=== PATIENT | female | born 1935 | race Caucasian/White ===

== ENCOUNTER 2019-04-27 16:02 | Inpatient (IN) | payer MEDICARE, OTHER ==
[~2019-04-27] VITALS: Ht 170.2 cm; Wt 60.0 kg
[2019-04-27] MEDS ORDERED: fentaNYL/PF 50MCG/1 ML 2ML syringe IV ONE ×2 (16:30→19:55)
[2019-04-27 16:51] LABS: BASOPHILS % (AUTO) 0.6 % (0-1); EOSINOPHILS % (AUTO) 0.3 % (0-6); HEMATOCRIT 37.4 % (35.0-45.0); HEMOGLOBIN 12.7 g/dl (12.0-16.0); LYMPHOCYTES # (AUTO) 1.5 X10'3 (1.1-4.8); LYMPHOCYTES % (AUTO) 19.5 % (21-51); MEAN CORPUSCULAR HEMOGLOBIN 32.8 PG (27.0-31.0); MEAN CORPUSCULAR VOLUME 96.2 FL (78-98); MEAN PLATELET VOLUME 7.9 FL (7.4-10.4); MONOCYTES # (AUTO) 0.5 X10'3 (0-0.9); MONOCYTES % (AUTO) 7.1 % (2-12); NEUTROPHILS # (AUTO) 5.5 X10'3 (1.8-7.7); NEUTROPHILS % (AUTO) 72.5 % (42-75); PLATELET COUNT 279 X10'3 (140-440); RED BLOOD COUNT 3.88 X10'6 (4.20-5.60); RED CELL DISTRIBUTION WIDTH 12.3 % (11.5-14.5); WHITE BLOOD COUNT 7.6 X10'3 (4.5-11.0)
[2019-04-27 17:00] LABS: ALANINE AMINOTRANSFERASE 28 U/L (12-78); ALBUMIN 4.2 G/DL (3.4-5.0); ALBUMIN/GLOBULIN RATIO 1.5 (1.1-1.5); ALKALINE PHOSPHATASE 78 IU/L (46-116); ANION GAP 10 (8-16); ASPARTATE AMINO TRANSFERASE 23 U/L (10-37); BILIRUBIN,TOTAL 0.4 MG/DL (0.1-1.0); BLOOD UREA NITROGEN 24 MG/DL (7-18); BUN/CREATININE RATIO 27.9 (6.6-38.0); CALCIUM 9.5 MG/DL (8.5-10.1); CHLORIDE 106 MMOL/L (99-107); CREATININE 0.86 MG/DL (0.40-0.90); GLUCOSE 98 MG/DL (70-104); POTASSIUM 3.9 MMOL/L (3.5-5.1); SODIUM 142 MMOL/L (135-145); TOTAL CARBON DIOXIDE 25.9 MMOL/L (24-32); eGFR 63 ML/MIN
[2019-04-27] MEDS ORDERED: ACET-75 PO (17:07)
[2019-04-27] MEDS ORDERED: LORazepam 2 mg/ml vial ONE (17:07)
[2019-04-27] MEDS ORDERED: HYDROcodone/acetaminophen 5mg/325mg tablet PO PRN (17:30)
[2019-04-27] MEDS ORDERED: HYDROcodone/acetaminophen 10/325mg tab PO PRN (17:30)
[2019-04-27] MEDS ORDERED: potassium CL 10mEq/100ml bag 100 ML IV PRN ×2 (17:30)
[2019-04-27] MEDS ORDERED: magnesium 2GM in 50ml NS 50 ML IV PRN (17:30)
[2019-04-27] MEDS ORDERED: mag hydrox/Alum hydrox/simeth 30ml oral suspension PO PRN (17:30)
[2019-04-27] MEDS ORDERED: magnesium 4gm in 100ml NS 100 ML IV PRN (17:30)
[2019-04-27] MEDS ORDERED: morphine 2 MG/ML inj. syringe IV PRN (17:30)
[2019-04-27] MEDS ORDERED: potassium Cl 20 mEq SR tablet PO PRN ×2 (17:30)
[2019-04-27] MEDS ORDERED: acetaminophen 325mg tablet PO PRN (17:30)
[2019-04-27] MEDS ORDERED: oxyCODONE IR 5mg (immed. release) tablet PO PRN (18:00)
[2019-04-27] MEDS ORDERED: LORazepam 2 mg/ml vial IV PRN (18:20)
[2019-04-27] MEDS ORDERED: MULT-933 PO (18:23)
[2019-04-27] MEDS ORDERED: MELO-102 PO (18:23)
[2019-04-27] MEDS ORDERED: ATOR10TA70 PO (18:23)
[2019-04-27] MEDS ORDERED: CHOL100046 PO (18:25)
[2019-04-27] MEDS ORDERED: DIPH25CA83 PO (18:25)
[2019-04-27] MEDS ORDERED: ASCO500C15 PO (18:25)
[2019-04-27] MEDS ORDERED: CYAN-51 PO (18:25)
[2019-04-27] MEDS: morphine 2 MG/ML inj. syringe IV PRN ×2 (18:59→23:59)
[2019-04-27] MEDS: ondansetron/PF 4mg/2ml inj IV PRN (19:03)
[2019-04-27 19:09] LABS: CLARITY,URINE CLEAR (Clear); COLOR,URINE YELLOW (Yellow); GLUCOSE, URINE NEGATIVE (Neg); KETONES,URINE 15 mg/dl (Neg); LEUKOCYTE ESTERASE ,URINE NEGATIVE (Neg); NITRITES, URINE POSITIVE (Neg); OCCULT BLOOD,URINE SMALL (Neg); PROTEIN,URINE NEGATIVE (Neg); UA COLLECTION TYPE FOLEY CATH; UROBILINOGEN,URINE 0.2 E.U/dL (0.2-1.0)
[2019-04-27 19:16] LABS: BACTERIA,URINE 3+ /HPF (Neg); MUCUS STRANDS NONE SEEN /LPF (Neg); RBC,URINE 0-2 /HPF (0-2); SQUAMOUS EPITHELIAL CELL,UR NONE SEEN /LPF (FEW)
--- NOTE | 2019-04-27 20:36 | NUR ---
traction placed to right leg, Pt tolerated well. CMS intact.
--- NOTE | 2019-04-27 22:08 | NUR ---
RECEIVED REPORT from Joanne Iglesias RN in the ER. had the opportunity to ask questions per report VS are stable R femur Fx, minimal Hx and pain well managed, RN will give dose of morphine before transferring pt up to unit.
[2019-04-27] MEDS: oxyCODONE IR 5mg (immed. release) tablet PO PRN (22:10)
--- NOTE | 2019-04-27 22:15 | NUR ---
Pt arived to unit with all belongings and with multiple family members, VS stable, call light in reach, oriented pt to room, ensured that traction was set up as needed, will continue to monitor.
[2019-04-27 22:20] VITALS: BP 111/45
[2019-04-28] VITALS (17 sets, daily range): BP systolic 92–133; BP diastolic 32–71
[2019-04-28] MEDS: oxyCODONE IR 5mg (immed. release) tablet PO PRN ×2 (02:53→15:38)
--- NOTE | 2019-04-28 06:30 | NUR ---
Problems reprioritized. Patient report given, questions answered & plan of care reviewed with Germaine Cohen RN.
[2019-04-28 07:00] LABS: BASOPHILS % (AUTO) 0.7 % (0-1); EOSINOPHILS % (AUTO) 0.2 % (0-6); HEMATOCRIT 31.5 % (35.0-45.0); HEMOGLOBIN 10.9 g/dl (12.0-16.0); LYMPHOCYTES # (AUTO) 1.2 X10'3 (1.1-4.8); LYMPHOCYTES % (AUTO) 16.6 % (21-51); MEAN CORPUSCULAR HEMOGLOBIN 32.9 PG (27.0-31.0); MEAN CORPUSCULAR HGB CONC 34.6 g/dL (33.0-36.5); MEAN CORPUSCULAR VOLUME 95.2 FL (78-98); MEAN PLATELET VOLUME 8.1 FL (7.4-10.4); MONOCYTES # (AUTO) 0.6 X10'3 (0-0.9); MONOCYTES % (AUTO) 8.3 % (2-12); NEUTROPHILS # (AUTO) 5.3 X10'3 (1.8-7.7); NEUTROPHILS % (AUTO) 74.2 % (42-75); PLATELET COUNT 222 X10'3 (140-440); RED BLOOD COUNT 3.31 X10'6 (4.20-5.60); RED CELL DISTRIBUTION WIDTH 12.3 % (11.5-14.5); WHITE BLOOD COUNT 7.1 X10'3 (4.5-11.0)
[2019-04-28 07:17] LABS: ALANINE AMINOTRANSFERASE 24 U/L (12-78); ALBUMIN 3.4 G/DL (3.4-5.0); ALBUMIN/GLOBULIN RATIO 1.4 (1.1-1.5); ALKALINE PHOSPHATASE 62 IU/L (46-116); ANION GAP 7 (8-16); ASPARTATE AMINO TRANSFERASE 18 U/L (10-37); BILIRUBIN,TOTAL 0.7 MG/DL (0.1-1.0); BLOOD UREA NITROGEN 15 MG/DL (7-18); BUN/CREATININE RATIO 21.4 (6.6-38.0); CALCIUM 8.2 MG/DL (8.5-10.1); CHLORIDE 103 MMOL/L (99-107); GLUCOSE 106 MG/DL (70-104); MAGNESIUM 1.7 MG/DL (1.5-2.4); POTASSIUM 4.1 MMOL/L (3.5-5.1); SODIUM 137 MMOL/L (135-145); TOTAL CARBON DIOXIDE 27.1 MMOL/L (24-32); TOTAL PROTEIN 5.8 G/DL (6.4-8.2); eGFR 80 ML/MIN
[2019-04-28] MEDS ORDERED: pneumococcal 23-VAL P-sac vacc 25 mcg/0.5ml vial IMVAC ONE (08:00)
[2019-04-28] MEDS: cyanocobalamin 500mcg tablet PO SCH (08:00)
[2019-04-28] MEDS: vitamin D (cholecalciferol) 1,000 unit tablet PO SCH (08:00)
[2019-04-28] MEDS: ascorbic acid 500mg tablet PO SCH (08:00)
[2019-04-28] MEDS: heparin, porcine 5000 units/ml vial SQ SCH ×3 (08:00→16:37)
[2019-04-28] MEDS: atorvastatin 10mg tablet PO SCH (08:00)
[2019-04-28] MEDS: K and/or MAG REPLACEMENT MC SCH (08:00)
[2019-04-28] MEDS: multivitamins, therapeutics tablet PO SCH (08:00)
[2019-04-28] MEDS ORDERED: ringers solution, lacted 1,000 ML IV SCH (08:38)
[2019-04-28] MEDS ORDERED: meperidine/PF 25mg/ml syringe IV PRN ×3 (08:40)
[2019-04-28] MEDS ORDERED: morphine 4 MG/ML inj SYRINge IV PRN ×2 (08:40)
[2019-04-28] MEDS ORDERED: ondansetron/PF 4mg/2ml inj IV PRN (08:40)
[2019-04-28] MEDS ORDERED: proCHLORperazine 10 MG/2 ml inj IV PRN (08:40)
[2019-04-28] MEDS ORDERED: ceFAZolin 1GM/D5W- ADD-VANTAGE 50 ML IV ONE (09:40)
[2019-04-28] MEDS ORDERED: midazolam 2 mg/2 ml injection ONE (09:55)
[2019-04-28] MEDS ORDERED: fentaNYL/PF 50MCG/1 ML 2ML syringe ONE (09:55)
[2019-04-28] MEDS ORDERED: ceFAZolin 1000mg inj ONE ×2 (10:20)
--- NOTE | 2019-04-28 10:55 | NUR ---
Received from OR via ORTHO BED WITH [facility] , accompanied by Anesthesiologist HUSAM and report given by Anesthesiolgist. PATIENT WITH 20G PIV IN LEFT UE RUNNING LR AT 100. RIGHT HIP DRESSING IS OOZY BUT CONTAINED WITHIN DRESSING. + DORSALIS PEDIS PRESENT. VSS. SCDS ON. ALERT AND ORIENTED. WILL CONTINUE TO ASSESS. Addendum: 04/28/19 at 1112 by Meek Chaney RN, RN Amended: Links added.
[2019-04-28] MEDS: ondansetron/PF 4mg/2ml inj IV PRN (11:13)
--- NOTE | 2019-04-28 11:55 | NUR ---
ALL CRITERIA FOR TRANSFER TO THE FLOOR HAS BEEN ACHIEVED. VSS. BED LOW, CALL LIGHT AND VS. SET IN PLACE. RN PRESENT TO ACCEPT CARE. PATIENT RESTING COMFORTABLY IN BED. BELONGINGS SENT WITH PATIENT. DRESSINGS CDI. CINDY WHEELER AWARE PATIENT HAS ARRIVED AND FAMILY ACCOMPANIED SHORTLY AFTER. Addendum: 04/28/19 at 1159 by Meek Anne - CINDY WHITE Amended: Links added.
--- NOTE | 2019-04-28 15:04 | NUR ---
Malnutrition consult: Pt admit s/p fall w/ R hip fx; fell during PT recovering from prior pelvis fx in September per MD note. Pt has normal strength, R hip +1 edema, well-developed and well-nourished per MD note. First patient admit and current wt pt stated. Advanced to regular diet from NPO following OR today. Pt will need high protein ed once stable post-op. At this time pt lacks minimum two malnutrition criteria. Will continue to monitor for additional criteria this admit. Addendum: 04/28/19 at [address] Amended: Links added.
--- NOTE | 2019-04-28 15:49 | NUR ---
PAGER ID: [phone] MESSAGE: Germaine [phone] [place] [address]- back from surgery, on ancef for prophylaxis, but her UA positive for nitrates. Does she need additional abx? Did you want her on any fluids?
[2019-04-28] MEDS: morphine 2 MG/ML inj. syringe IV PRN (16:29)
[2019-04-28] MEDS: ceFAZolin 1GM/D5W- ADD-VANTAGE 50 ML IV SCH (16:36)
[2019-04-29] MEDS: ceFAZolin 1GM/D5W- ADD-VANTAGE 50 ML IV SCH (00:15)
[2019-04-29] MEDS: heparin, porcine 5000 units/ml vial SQ SCH ×2 (00:20→08:00)
[2019-04-29 06:00] VITALS: BP 105/54
[2019-04-29 06:07] LABS: BASOPHILS % (AUTO) 0.7 % (0-1); EOSINOPHILS # (AUTO) 0.1 X10'3 (0-0.9); EOSINOPHILS % (AUTO) 0.9 % (0-6); HEMOGLOBIN 10.6 g/dl (12.0-16.0); LYMPHOCYTES # (AUTO) 1.2 X10'3 (1.1-4.8); MEAN CORPUSCULAR HEMOGLOBIN 33.6 PG (27.0-31.0); MEAN CORPUSCULAR HGB CONC 35.5 g/dL (33.0-36.5); MEAN CORPUSCULAR VOLUME 94.6 FL (78-98); MEAN PLATELET VOLUME 8.4 FL (7.4-10.4); MONOCYTES # (AUTO) 0.7 X10'3 (0-0.9); MONOCYTES % (AUTO) 11.6 % (2-12); NEUTROPHILS # (AUTO) 4.1 X10'3 (1.8-7.7); NEUTROPHILS % (AUTO) 67.8 % (42-75); PLATELET COUNT 195 X10'3 (140-440); RED BLOOD COUNT 3.17 X10'6 (4.20-5.60); RED CELL DISTRIBUTION WIDTH 12.3 % (11.5-14.5); WHITE BLOOD COUNT 6.1 X10'3 (4.5-11.0)
[2019-04-29 06:34] LABS: ALANINE AMINOTRANSFERASE 22 U/L (12-78); ALBUMIN 2.8 G/DL (3.4-5.0); ALBUMIN/GLOBULIN RATIO 1.1 (1.1-1.5); ALKALINE PHOSPHATASE 53 IU/L (46-116); ANION GAP 5 (8-16); ASPARTATE AMINO TRANSFERASE 16 U/L (10-37); BILIRUBIN,TOTAL 0.4 MG/DL (0.1-1.0); BLOOD UREA NITROGEN 12 MG/DL (7-18); BUN/CREATININE RATIO 14.3 (6.6-38.0); CALCIUM 8.4 MG/DL (8.5-10.1); CHLORIDE 105 MMOL/L (99-107); CREATININE 0.84 MG/DL (0.40-0.90); GLUCOSE 107 MG/DL (70-104); MAGNESIUM 1.7 MG/DL (1.5-2.4); POTASSIUM 4.1 MMOL/L (3.5-5.1); SODIUM 140 MMOL/L (135-145); TOTAL CARBON DIOXIDE 29.8 MMOL/L (24-32); TOTAL PROTEIN 5.4 G/DL (6.4-8.2); eGFR 65 ML/MIN
[2019-04-29] MEDS: K and/or MAG REPLACEMENT MC SCH (08:00)
[2019-04-29] MEDS: docusate sod 100mg capsule PO PRN ×2 (08:02→19:06)
[2019-04-29] MEDS: vitamin D (cholecalciferol) 1,000 unit tablet PO SCH (08:02)
[2019-04-29] MEDS: ascorbic acid 500mg tablet PO SCH (08:02)
[2019-04-29] MEDS: multivitamins, therapeutics tablet PO SCH (08:02)
[2019-04-29] MEDS: cyanocobalamin 500mcg tablet PO SCH (08:02)
[2019-04-29] MEDS: atorvastatin 10mg tablet PO SCH (08:02)
[2019-04-29] MEDS: enoxaparin 40mg/0.4ml syringe SQ SCH (08:04)
[2019-04-29] MEDS: CefTRIAXone/D5W-Rocephin 1gm 50 ML IV SCH (08:07)
[2019-04-29] MEDS: oxyCODONE IR 5mg (immed. release) tablet PO PRN ×3 (08:45→19:06)
[2019-04-29] MEDS: ondansetron/PF 4mg/2ml inj IV PRN (09:36)
[2019-04-29] MEDS ORDERED: FLU VACC QS2019-20 36MOS UP/PF 60 MCG/0.5 ML SYRINGE IMVAC ONE (10:00)
[2019-04-29 10:44] VITALS: BP 80/44
--- NOTE | 2019-04-29 12:04 | NUR ---
PAGER ID: [phone] MESSAGE: Germaine [phone] [place] [address]- FYI- I held the heparin and gave the lovanox, both were ordered. You want me to give the heparin too or dc order and keep lovanox? I called Francisco he will be rounding later.
[2019-04-29] MEDS: normal saline 1000ml 1,000 ML IV SCH ×2 (13:29→21:20)
[2019-04-29 18:00] VITALS: BP 99/49
[2019-04-29] MEDS: lactobacillus rhamnosus 10,000 MMU CELLS/CAPSULE PO SCH (19:04)
[2019-04-29 22:00] VITALS: BP 107/54
[2019-04-30] MEDS: oxyCODONE IR 5mg (immed. release) tablet PO PRN ×3 (05:40→20:06)
[2019-04-30 06:00] VITALS: BP 119/56
--- NOTE | 2019-04-30 06:34 | NUR ---
reported to days. noted dempsey out and anticipate working with PT this am
[2019-04-30 06:50] LABS: BASOPHILS % (AUTO) 0.8 % (0-1); EOSINOPHILS # (AUTO) 0.2 X10'3 (0-0.9); EOSINOPHILS % (AUTO) 2.5 % (0-6); HEMOGLOBIN 9.7 g/dl (12.0-16.0); LYMPHOCYTES # (AUTO) 1.2 X10'3 (1.1-4.8); LYMPHOCYTES % (AUTO) 18.8 % (21-51); MEAN CORPUSCULAR HEMOGLOBIN 32.9 PG (27.0-31.0); MEAN CORPUSCULAR HGB CONC 34.7 g/dL (33.0-36.5); MEAN CORPUSCULAR VOLUME 94.8 FL (78-98); MEAN PLATELET VOLUME 8.4 FL (7.4-10.4); MONOCYTES # (AUTO) 0.7 X10'3 (0-0.9); MONOCYTES % (AUTO) 11.5 % (2-12); NEUTROPHILS # (AUTO) 4.1 X10'3 (1.8-7.7); NEUTROPHILS % (AUTO) 66.4 % (42-75); PLATELET COUNT 179 X10'3 (140-440); RED BLOOD COUNT 2.95 X10'6 (4.20-5.60); RED CELL DISTRIBUTION WIDTH 12.3 % (11.5-14.5); WHITE BLOOD COUNT 6.2 X10'3 (4.5-11.0)
--- NOTE | 2019-04-30 06:55 | NUR ---
Patient in room ORTHO 4024. I have received report from Toña WHITE and had the opportunity to ask questions and assume patient care.
[2019-04-30 06:56] LABS: ALANINE AMINOTRANSFERASE 17 U/L (12-78); ALBUMIN 2.4 G/DL (3.4-5.0); ALBUMIN/GLOBULIN RATIO 0.9 (1.1-1.5); ALKALINE PHOSPHATASE 53 IU/L (46-116); ANION GAP 6 (8-16); ASPARTATE AMINO TRANSFERASE 13 U/L (10-37); BILIRUBIN,TOTAL 0.3 MG/DL (0.1-1.0); BLOOD UREA NITROGEN 13 MG/DL (7-18); BUN/CREATININE RATIO 17.1 (6.6-38.0); CALCIUM 7.9 MG/DL (8.5-10.1); CHLORIDE 105 MMOL/L (99-107); CREATININE 0.76 MG/DL (0.40-0.90); GLUCOSE 99 MG/DL (70-104); MAGNESIUM 1.6 MG/DL (1.5-2.4); SODIUM 140 MMOL/L (135-145); TOTAL CARBON DIOXIDE 29.4 MMOL/L (24-32); TOTAL PROTEIN 5.2 G/DL (6.4-8.2); eGFR 73 ML/MIN
[2019-04-30] MEDS: K and/or MAG REPLACEMENT MC SCH (07:19)
[2019-04-30] MEDS: ondansetron/PF 4mg/2ml inj IV PRN (07:23)
[2019-04-30] MEDS: CefTRIAXone/D5W-Rocephin 1gm 50 ML IV SCH (07:23)
[2019-04-30] MEDS: docusate sod 100mg capsule PO PRN (07:26)
[2019-04-30] MEDS: vitamin D (cholecalciferol) 1,000 unit tablet PO SCH (07:26)
[2019-04-30] MEDS: lactobacillus rhamnosus 10,000 MMU CELLS/CAPSULE PO SCH ×2 (07:26→20:07)
[2019-04-30] MEDS: ascorbic acid 500mg tablet PO SCH (07:27)
[2019-04-30] MEDS: multivitamins, therapeutics tablet PO SCH (07:27)
[2019-04-30] MEDS: atorvastatin 10mg tablet PO SCH (07:27)
[2019-04-30] MEDS: cyanocobalamin 500mcg tablet PO SCH (07:27)
[2019-04-30] MEDS: enoxaparin 40mg/0.4ml syringe SQ SCH (07:28)
[2019-04-30 10:00] VITALS: BP 111/52
--- NOTE | 2019-04-30 13:10 | NUR ---
Joint replacement consult: Pt PO 50% avg meals s/p R hip fx repair. Also being treated for e.coli UTI per MD note. LBM 04/30. Pt seen by RD for written/verbal high protein ed w/ RD contact information provided. Pt agrees to pashto yogurt and milk BIDLD in addition to cottage cheese w/ fruit at breakfasts. Pt endorses strong eating habits at home; admits appetite has decreased as far as food volume but overall PO intake remains stable at home. Pt admits to wt loss r/t multiple fractures in recent hx but is happy w/ current wt and has no nutrition concerns at this time. Still no dual malnutrition criteria at this time. Will continue to monitor. Malnutrition consult: Pt admit s/p fall w/ R hip fx; fell during PT recovering from prior pelvis fx in September per MD note. Pt has normal strength, R hip +1 edema, well-developed and well-nourished per MD note. First patient admit and current wt pt stated. Advanced to regular diet from NPO following OR today. Pt will need high protein ed once stable post-op. At this time pt lacks minimum two malnutrition criteria. Will continue to monitor for additional criteria this admit. Rec: 1. continue regular diet 2. honor pt food preferences; see above 3. weekly wts Addendum: 04/30/19 at [address] Amended: Links added.
--- NOTE | 2019-04-30 18:10 | NUR ---
Problems reprioritized. Patient report given, questions answered & plan of care reviewed with Toña WHITE.
[2019-04-30 18:34] VITALS: BP 106/45
[2019-04-30 22:07] VITALS: BP 134/60
[2019-05-01] MEDS: oxyCODONE IR 5mg (immed. release) tablet PO PRN ×3 (05:31→20:14)
[2019-05-01 06:00] VITALS: BP 128/57
--- NOTE | 2019-05-01 06:18 | NUR ---
reported to days. anticipate discharge to rehab
[2019-05-01 06:43] LABS: BASOPHILS % (AUTO) 0.7 % (0-1); EOSINOPHILS # (AUTO) 0.2 X10'3 (0-0.9); HEMOGLOBIN 10.4 g/dl (12.0-16.0); LYMPHOCYTES # (AUTO) 1.1 X10'3 (1.1-4.8); LYMPHOCYTES % (AUTO) 21.8 % (21-51); MEAN CORPUSCULAR HEMOGLOBIN 32.9 PG (27.0-31.0); MEAN CORPUSCULAR HGB CONC 34.6 g/dL (33.0-36.5); MEAN CORPUSCULAR VOLUME 95.2 FL (78-98); MEAN PLATELET VOLUME 8.1 FL (7.4-10.4); MONOCYTES # (AUTO) 0.5 X10'3 (0-0.9); MONOCYTES % (AUTO) 9.7 % (2-12); NEUTROPHILS # (AUTO) 3.3 X10'3 (1.8-7.7); NEUTROPHILS % (AUTO) 63.8 % (42-75); PLATELET COUNT 216 X10'3 (140-440); RED BLOOD COUNT 3.15 X10'6 (4.20-5.60); RED CELL DISTRIBUTION WIDTH 12.3 % (11.5-14.5); WHITE BLOOD COUNT 5.1 X10'3 (4.5-11.0)
--- NOTE | 2019-05-01 06:54 | NUR ---
Patient in room ORTHO 4024. I have received report from Toña WHITE and had the opportunity to ask questions and assume patient care.
[2019-05-01 07:07] LABS: ALANINE AMINOTRANSFERASE 17 U/L (12-78); ALBUMIN 2.6 G/DL (3.4-5.0); ALBUMIN/GLOBULIN RATIO 0.8 (1.1-1.5); ALKALINE PHOSPHATASE 54 IU/L (46-116); ANION GAP 4 (8-16); ASPARTATE AMINO TRANSFERASE 12 U/L (10-37); BILIRUBIN,TOTAL 0.4 MG/DL (0.1-1.0); BLOOD UREA NITROGEN 16 MG/DL (7-18); BUN/CREATININE RATIO 22.9 (6.6-38.0); CALCIUM 8.3 MG/DL (8.5-10.1); CHLORIDE 106 MMOL/L (99-107); GLUCOSE 114 MG/DL (70-104); POTASSIUM 4.3 MMOL/L (3.5-5.1); SODIUM 143 MMOL/L (135-145); TOTAL CARBON DIOXIDE 33.5 MMOL/L (24-32); TOTAL PROTEIN 5.8 G/DL (6.4-8.2); eGFR 80 ML/MIN
[2019-05-01] MEDS: K and/or MAG REPLACEMENT MC SCH (07:12)
[2019-05-01] MEDS: CefTRIAXone/D5W-Rocephin 1gm 50 ML IV SCH (07:18)
[2019-05-01] MEDS: enoxaparin 40mg/0.4ml syringe SQ SCH (07:19)
[2019-05-01] MEDS: cyanocobalamin 500mcg tablet PO SCH (07:19)
[2019-05-01] MEDS: ascorbic acid 500mg tablet PO SCH (07:19)
[2019-05-01] MEDS: atorvastatin 10mg tablet PO SCH (07:19)
[2019-05-01] MEDS: lactobacillus rhamnosus 10,000 MMU CELLS/CAPSULE PO SCH ×2 (07:19→20:14)
[2019-05-01] MEDS: multivitamins, therapeutics tablet PO SCH (07:19)
[2019-05-01] MEDS: vitamin D (cholecalciferol) 1,000 unit tablet PO SCH (07:20)
[2019-05-01] MEDS: ondansetron/PF 4mg/2ml inj IV PRN (08:04)
[2019-05-01 10:00] VITALS: BP 113/62
[2019-05-01 18:00] VITALS: BP 109/47
--- NOTE | 2019-05-01 18:34 | NUR ---
Problems reprioritized. Patient report given, questions answered & plan of care reviewed with Olena WHITE.
[2019-05-01] MEDS: docusate sod 100mg capsule PO PRN (20:14)
[2019-05-01 22:00] VITALS: BP 116/46
[2019-05-02] MEDS: oxyCODONE IR 5mg (immed. release) tablet PO PRN (05:11)
[2019-05-02 06:00] VITALS: BP 123/55
--- NOTE | 2019-05-02 06:12 | NUR ---
Problems reprioritized. Patient report given, questions answered & plan of care reviewed with CINDY LARSEN.
[2019-05-02 06:22] LABS: BASOPHILS % (AUTO) 0.9 % (0-1); EOSINOPHILS # (AUTO) 0.3 X10'3 (0-0.9); EOSINOPHILS % (AUTO) 5.7 % (0-6); HEMATOCRIT 26.3 % (35.0-45.0); LYMPHOCYTES # (AUTO) 1.1 X10'3 (1.1-4.8); LYMPHOCYTES % (AUTO) 20.5 % (21-51); MEAN CORPUSCULAR HEMOGLOBIN 32.9 PG (27.0-31.0); MEAN CORPUSCULAR HGB CONC 34.4 g/dL (33.0-36.5); MEAN CORPUSCULAR VOLUME 95.6 FL (78-98); MEAN PLATELET VOLUME 8.2 FL (7.4-10.4); MONOCYTES # (AUTO) 0.6 X10'3 (0-0.9); MONOCYTES % (AUTO) 11.5 % (2-12); NEUTROPHILS # (AUTO) 3.3 X10'3 (1.8-7.7); NEUTROPHILS % (AUTO) 61.4 % (42-75); PLATELET COUNT 234 X10'3 (140-440); RED BLOOD COUNT 2.75 X10'6 (4.20-5.60); RED CELL DISTRIBUTION WIDTH 12.2 % (11.5-14.5); WHITE BLOOD COUNT 5.4 X10'3 (4.5-11.0)
[2019-05-02 06:26] LABS: ALANINE AMINOTRANSFERASE 18 U/L (12-78); ALBUMIN 2.5 G/DL (3.4-5.0); ALBUMIN/GLOBULIN RATIO 0.8 (1.1-1.5); ALKALINE PHOSPHATASE 53 IU/L (46-116); ANION GAP 5 (8-16); ASPARTATE AMINO TRANSFERASE 15 U/L (10-37); BILIRUBIN,TOTAL 0.5 MG/DL (0.1-1.0); BLOOD UREA NITROGEN 20 MG/DL (7-18); CALCIUM 8.4 MG/DL (8.5-10.1); CHLORIDE 107 MMOL/L (99-107); CREATININE 0.77 MG/DL (0.40-0.90); GLUCOSE 103 MG/DL (70-104); MAGNESIUM 1.8 MG/DL (1.5-2.4); POTASSIUM 4.6 MMOL/L (3.5-5.1); SODIUM 144 MMOL/L (135-145); TOTAL CARBON DIOXIDE 32.4 MMOL/L (24-32); TOTAL PROTEIN 5.5 G/DL (6.4-8.2); eGFR 72 ML/MIN
--- NOTE | 2019-05-02 07:04 | NUR ---
Patient in room ORTHO 4024. I have received report from Olena WHITE and had the opportunity to ask questions and assume patient care.
[2019-05-02] MEDS: K and/or MAG REPLACEMENT MC SCH (07:18)
[2019-05-02] MEDS: enoxaparin 40mg/0.4ml syringe SQ SCH (08:27)
[2019-05-02] MEDS: lactobacillus rhamnosus 10,000 MMU CELLS/CAPSULE PO SCH (08:27)
[2019-05-02] MEDS: vitamin D (cholecalciferol) 1,000 unit tablet PO SCH (08:27)
[2019-05-02] MEDS: CefTRIAXone/D5W-Rocephin 1gm 50 ML IV SCH (08:27)
[2019-05-02] MEDS: cyanocobalamin 500mcg tablet PO SCH (08:28)
[2019-05-02] MEDS: multivitamins, therapeutics tablet PO SCH (08:28)
[2019-05-02] MEDS: atorvastatin 10mg tablet PO SCH (08:28)
[2019-05-02] MEDS: ascorbic acid 500mg tablet PO SCH (08:28)
[2019-05-02 10:00] VITALS: BP 103/55
--- NOTE | 2019-05-02 15:07 | NUR ---
Initial: Pt s/p hip fracture repair PO 50-75% avg meals w/ protein preferences meeting healing needs. [facility] 04/30. Will continue to monitor. Rec: 1. continue regular diet 2. honor pt food preferences; see above 3. routine bowel care 4. weekly wts Addendum: 05/02/19 at [address] Amended: Links added.
--- NOTE | 2019-05-02 16:21 | NUR ---
Report called to Rosana FARRAR at [facility]
--- NOTE | 2019-05-02 16:57 | NUR ---
Patient discharged to [facility] via medical transport, all belongings sent with patient, IV taken out and tele box d/c, patient stable upon discharge
== END 2019-05-02 16:45 | DRG 956 ==
LOC: ER 16:02 → ED HOLD 17:27 → ORTHO 4S 22:15
PROVIDERS: ADMIT Family Medicine; ATTEND Family Medicine
PROC: 0QS606Z Reposition Right Upper Femur with Intramedullary Internal Fixation Device, Open Approach (ICD-10-PCS; principal; 2019-04-28 09:48)
PROC: 3E0234Z Introduction of Serum, Toxoid and Vaccine into Muscle, Percutaneous Approach (ICD-10-PCS; 2019-05-02)
DX: S72.141A Displaced intertrochanteric fracture of right femur, initial encounter for closed fracture (principal); S32.591A Other specified fracture of right pubis, initial encounter for closed fracture; J96.00 Acute respiratory failure, unspecified whether with hypoxia or hypercapnia; D62 Acute posthemorrhagic anemia; N39.0 Urinary tract infection, site not specified; B96.20 Unspecified Escherichia coli [E. coli] as the cause of diseases classified elsewhere; E78.00 Pure hypercholesterolemia, unspecified; E78.5 Hyperlipidemia, unspecified; Y93.01 Activity, walking, marching and hiking; Z96.652 Presence of left artificial knee joint; Z82.3 Family history of stroke; Z82.49 Family history of ischemic heart disease and other diseases of the circulatory system; Z23 Encounter for immunization; Z83.3 Family history of diabetes mellitus; Z87.891 Personal history of nicotine dependence; V79.88XA Bus occupant (driver) (passenger) injured in other specified transport accidents, initial encounter; Y92.89 Other specified places as the place of occurrence of the external cause; Y99.8 Other external cause status
CPT/HCPCS: 36415; 71045; 73502; 76000; 80053; 81001; 83735; 85025; 85610; 86885; 86900; 86901; 87077; 87081; 87088; 87186; 90732; 93005; 96374; 97110; 97116; 97161; 97530; 99285; A4618; A6222; A6258; A6402; A7000; C1713; G0378; J0690; J0696; J1644; J1650; J2060; J2175; J2250; J2270; J2405; J3010; J7030; J7120

== ENCOUNTER 2024-01-05 11:13 | Emergency (ER) | payer OTHER ==
[~2024-01-05] VITALS: Ht 160 cm; Wt 56.8 kg
[~2024-01-05 11:13] MED LIST: ASCO500C18 PO; ATOR10TA70 PO; CHOL100046 PO; CYAN-104 PO; DIPH25CA83 PO; MELO-102 PO; MULT-933 PO
[2024-01-05] MEDS: BUPIVAcaine/PF 2.5 mg/ml (0.25%) 30ml vial IJ ONE (13:25)
[2024-01-05] MEDS: triamcinolone acetonide 40mg/ml inj IJ ONE (13:25)
[2024-01-05 13:32] VITALS: BP 142/85; PULSE 76; RESP 15; TEMP 97.4; O2SAT 96
== END 2024-01-05 13:35 | disposition home or self-care (01) ==
LOC: ER 11:13
DX: M70.62 Trochanteric bursitis, left hip (principal); E78.00 Pure hypercholesterolemia, unspecified; Z79.899 Other long term (current) drug therapy; Y93.89 Activity, other specified
CPT/HCPCS: 20610; 99284